=== PATIENT | female | born 1955 | race Caucasian/White ===

== ENCOUNTER 2017-10-28 12:52 | Inpatient (IN) | payer MEDICARE, MEDICAID ==
[~2017-10-28] VITALS: Ht 157.5 cm; Wt 129.0 kg
[2017-10-28 13:23] LABS: BASOPHILS % (AUTO) 0.3 % (0-1); EOSINOPHILS # (AUTO) 0.2 X10'3 (0-0.9); EOSINOPHILS % (AUTO) 1.5 % (0-6); HEMATOCRIT 45.1 % (35.0-45.0); HEMOGLOBIN 14.9 g/dl (12.0-16.0); LYMPHOCYTES # (AUTO) 1.8 X10'3 (1.1-4.8); LYMPHOCYTES % (AUTO) 12.9 % (21-51); MEAN CORPUSCULAR HEMOGLOBIN 26.9 PG (27.0-31.0); MEAN CORPUSCULAR VOLUME 81.8 FL (78-98); MEAN PLATELET VOLUME 9.5 FL (7.4-10.4); MONOCYTES # (AUTO) 0.7 X10'3 (0-0.9); MONOCYTES % (AUTO) 5.2 % (2-12); NEUTROPHILS # (AUTO) 11.4 X10'3 (1.8-7.7); NEUTROPHILS % (AUTO) 80.1 % (42-75); PLATELET COUNT 289 X10'3 (140-440); RED BLOOD COUNT 5.51 X10'6 (4.20-5.60); RED CELL DISTRIBUTION WIDTH 14.6 % (11.5-14.5); WHITE BLOOD COUNT 14.2 X10'3 (4.5-11.0)
[2017-10-28 13:55] LABS: ALANINE AMINOTRANSFERASE 48 U/L (12-78); ALBUMIN 3.8 G/DL (3.4-5.0); ALKALINE PHOSPHATASE 89 IU/L (46-116); ANION GAP 11 (8-16); ASPARTATE AMINO TRANSFERASE 26 U/L (10-37); BILIRUBIN,TOTAL 0.6 MG/DL (0.1-1.0); BLOOD UREA NITROGEN 21 MG/DL (7-18); BUN/CREATININE RATIO 26.3 (6.6-38.0); CALCIUM 9.3 MG/DL (8.5-10.1); CHLORIDE 99 MMOL/L (99-107); GLUCOSE 126 MG/DL (70-104); SODIUM 140 MMOL/L (135-145); TOTAL CARBON DIOXIDE 30.3 MMOL/L (24-32); TOTAL PROTEIN 7.6 G/DL (6.4-8.2); eGFR 73 ML/MIN
[2017-10-28 14:01] LABS: POTASSIUM 2.9 MMOL/L (3.5-5.1)
[2017-10-28 14:14] LABS: INR 0.9 INR; PARTIAL THROMBOPLASTIN TIME 26 SECONDS (22-32); PROTHROMBIN TIME 9.8 SECONDS (9.0-12.0)
[2017-10-28] MEDS ORDERED: potassium Cl oral solution 20 MEQ/15 ML PO ONE (14:50)
[2017-10-28] MEDS ORDERED: acetaminophen 325mg tablet PO PRN (15:10)
[2017-10-28] MEDS ORDERED: MESSAGE TO PHARMACY PO ONE (15:10)
[2017-10-28] MEDS ORDERED: magnesium 2GM in 50ml NS 50 ML IV PRN (15:10)
[2017-10-28] MEDS ORDERED: magnesium hydroxide 30ml (MOM) UD suspension PO PRN (15:10)
[2017-10-28] MEDS ORDERED: HYDROmorphone 1 mg/ml syringe IV PRN (15:10)
[2017-10-28] MEDS ORDERED: glucagon, human recombinant 1mg kit SUBCUT PRN (15:10)
[2017-10-28] MEDS ORDERED: HYDROcodone/acetaminophen 5mg/325mg tablet PO PRN (15:10)
[2017-10-28] MEDS ORDERED: potassium Cl 40MEQ/NS 500ml 500 ML IV PRN ×2 (15:10)
[2017-10-28] MEDS ORDERED: dextrose ORAL solution 15 GM/59 ML bottle PO PRN ×2 (15:10)
[2017-10-28] MEDS ORDERED: mag hydrox/Alum hydrox/simeth 30ml oral suspension PO PRN (15:10)
[2017-10-28] MEDS ORDERED: ondansetron/PF 4mg/2ml inj IV PRN (15:10)
[2017-10-28] MEDS ORDERED: magnesium Cl slow-release 64mg tablet PO PRN (15:10)
[2017-10-28] MEDS ORDERED: insulin Lispro (HumaLOG) vial - multi-dose SQ SCH (15:10)
[2017-10-28] MEDS ORDERED: magnesium 4gm in 100ml NS 100 ML IV PRN (15:10)
[2017-10-28] MEDS ORDERED: HYDROcodone/acetaminophen 10/325mg tab PO PRN (15:10)
[2017-10-28] MEDS ORDERED: morphine 2 MG/ML inj. syringe IV PRN (15:10)
[2017-10-28] MEDS ORDERED: potassium Cl 20 mEq SR tablet PO PRN (15:10)
[2017-10-28] MEDS ORDERED: dextrose 50%-water 50ml dispensing syringe IV PRN ×2 (15:10)
[2017-10-28] MEDS: normal saline 1000ml 1,000 ML IV SCH ×2 (15:51→21:15)
[2017-10-28 15:52] LABS: CLARITY,URINE CLEAR (Clear); GLUCOSE, URINE NEGATIVE (Neg); KETONES,URINE NEGATIVE (Neg); LEUKOCYTE ESTERASE ,URINE NEGATIVE (Neg); NITRITES, URINE NEGATIVE (Neg); OCCULT BLOOD,URINE NEGATIVE (Neg); PROTEIN,URINE NEGATIVE (Neg); UROBILINOGEN,URINE 0.2 E.U/dL (0.2-1.0)
[2017-10-28 15:55] LABS: COLOR,URINE DARK YELLOW (Yellow); UA COLLECTION TYPE OTHER
[2017-10-28 17:20] VITALS: BP 146/78
[2017-10-28 17:54] LABS: HEMOGLOBIN A1C 6.2 % (4.5-6.2)
[2017-10-28] MEDS ORDERED: PYRI50TA10 PO (18:04)
[2017-10-28] MEDS ORDERED: LISI-604 PO (18:04)
[2017-10-28] MEDS ORDERED: CHLO500T3 PO (18:04)
[2017-10-28] MEDS ORDERED: ASCO10007 PO (18:04)
[2017-10-28] MEDS ORDERED: FURO40TA4 PO (18:04)
[2017-10-28] MEDS ORDERED: OREG1500 PO (18:04)
[2017-10-28] MEDS ORDERED: POTA10TA19 PO (18:04)
[2017-10-28] MEDS ORDERED: HYDR25TA4 PO (18:04)
[2017-10-28] MEDS ORDERED: METO-384 PO (18:04)
[2017-10-28] MEDS ORDERED: FURO-150 PO (18:04)
[2017-10-28] MEDS ORDERED: METF500T PO (18:04)
[2017-10-28] MEDS ORDERED: ATOR40TA71 PO (18:04)
[2017-10-28] MEDS ORDERED: HYDR-3564 PO (18:04)
[2017-10-28] MEDS: potassium Cl 20 mEq SR tablet PO PRN ×2 (18:06→22:19)
[2017-10-28 19:00] VITALS: BP 138/72
[2017-10-28] MEDS ORDERED: morphine 5 MG/ML injection IV PRN (20:02)
[2017-10-28] MEDS ORDERED: insulin glargine (Lantus) pen - multi-dose SQ SCH (21:00)
[2017-10-29] VITALS: BP 135/72
[2017-10-29 02:36] LABS: ALBUMIN 3.3 G/DL (3.4-5.0); ANION GAP 11 (8-16); BLOOD UREA NITROGEN 18 MG/DL (7-18); CHLORIDE 102 MMOL/L (99-107); GLUCOSE 120 MG/DL (70-104); MAGNESIUM 2.1 MG/DL (1.5-2.4); POTASSIUM 3.2 MMOL/L (3.5-5.1); SODIUM 141 MMOL/L (135-145); TOTAL CARBON DIOXIDE 28.1 MMOL/L (24-32); eGFR > 90 ML/MIN
[2017-10-29 06:14] LABS: BASOPHILS # (AUTO) 0.1 X10'3 (0-0.2); BASOPHILS % (AUTO) 0.9 % (0-1); EOSINOPHILS # (AUTO) 0.2 X10'3 (0-0.9); HEMATOCRIT 39.9 % (35.0-45.0); HEMOGLOBIN 13.3 g/dl (12.0-16.0); LYMPHOCYTES # (AUTO) 2.5 X10'3 (1.1-4.8); LYMPHOCYTES % (AUTO) 21.8 % (21-51); MEAN CORPUSCULAR HEMOGLOBIN 27.1 PG (27.0-31.0); MEAN CORPUSCULAR HGB CONC 33.4 % (33.0-36.5); MEAN CORPUSCULAR VOLUME 81.2 FL (78-98); MEAN PLATELET VOLUME 9.8 FL (7.4-10.4); MONOCYTES # (AUTO) 0.8 X10'3 (0-0.9); MONOCYTES % (AUTO) 7.3 % (2-12); NEUTROPHILS # (AUTO) 7.9 X10'3 (1.8-7.7); PLATELET COUNT 240 X10'3 (140-440); RED BLOOD COUNT 4.91 X10'6 (4.20-5.60); RED CELL DISTRIBUTION WIDTH 14.8 % (11.5-14.5); WHITE BLOOD COUNT 11.6 X10'3 (4.5-11.0)
[2017-10-29 07:00] VITALS: BP 127/84
[2017-10-29] MEDS ORDERED: K and/or MAG REPLACEMENT MC SCH (08:00)
[2017-10-29 11:00] VITALS: BP 147/86
[2017-10-29] MEDS ORDERED: HYDROCODONE BIT PO PRN (12:25)
[2017-10-29] MEDS ORDERED: ACETAMINOPHEN PO PRN (12:25)
[2017-10-29] MEDS ORDERED: POTA10TA36 PO (12:29)
[2017-10-29] MEDS ORDERED: potassium Cl 20 mEq SR tablet PO STA (12:48)
[2017-10-29] MEDS ORDERED: ascorbic acid 500mg tablet PO SCH (13:00)
[2017-10-29] MEDS ORDERED: ASCORBIC ACID 1 GM PO SCH (13:00)
[2017-10-29] MEDS ORDERED: cyclobenzaprine 10mg tablet PO PRN (16:00)
[2017-10-29] MEDS ORDERED: pyridoxine 50mg tablet PO SCH (20:00)
[2017-10-29] MEDS ORDERED: HYDROchlorothiazide 25mg tablet PO SCH (21:00)
[2017-10-29] MEDS ORDERED: furosemide 40mg tablet PO SCH (21:00)
[2017-10-29] MEDS ORDERED: atorvastatin 20mg tablet PO SCH (21:00)
[2017-10-30] MEDS ORDERED: metFORMIN 500mg tablet PO SCH (08:00)
[2017-10-30] MEDS ORDERED: OREGANO OIL PO SCH (08:00)
[2017-10-30] MEDS ORDERED: furosemide 20MG tablet PO SCH (08:00)
[2017-10-30] MEDS ORDERED: potassium Cl 20 mEq SR tablet PO SCH (08:00)
[2017-10-30] MEDS ORDERED: lisinopril 5mg tablet PO SCH (08:00)
[2017-10-30] MEDS ORDERED: metoprolol succinate 25mg (24-HOUR) SR. Tablet PO SCH (08:00)
== END 2017-10-29 13:55 | disposition home or self-care (01) | DRG 312 ==
LOC: ER 12:53 → ED HOLD 15:10 → EDBEDREQ 16:11 → MED 3N 17:02
PROVIDERS: ADMIT Internal Medicine; ATTEND Internal Medicine
DX: R55 Syncope and collapse (principal); I11.0 Hypertensive heart disease with heart failure; I50.9 Heart failure, unspecified; E11.9 Type 2 diabetes mellitus without complications; F45.8 Other somatoform disorders; E78.5 Hyperlipidemia, unspecified; E87.6 Hypokalemia; J45.909 Unspecified asthma, uncomplicated; R94.31 Abnormal electrocardiogram [ECG] [EKG]; Z90.710 Acquired absence of both cervix and uterus; Z88.5 Allergy status to narcotic agent; Z88.2 Allergy status to sulfonamides; Z88.8 Allergy status to other drugs, medicaments and biological substances; Z91.048 Other nonmedicinal substance allergy status
CPT/HCPCS: 36415; 71045; 80048; 80053; 81003; 82948; 83036; 83735; 84132; 84484; 85025; 85610; 85730; 87070; 93005; 93306; 93880; 99285; J1815; J7030

== ENCOUNTER 2019-07-18 21:05 | Observation (INO) | payer MEDICARE, MEDICAID ==
[~2019-07-18] VITALS: Ht 157.5 cm; Wt 127.3 kg
[~2019-07-18 21:05] MED LIST: ASCO10007 PO; ATOR40TA71 PO; CHLO500T3 PO; FURO-150 PO; FURO40TA4 PO; HYDR-3565 PO; LISI-604 PO; METF500T PO; METO-384 PO; OREG1500 PO; POTA10TA36 PO; PYRI50TA13 PO
[2019-07-18 21:58] LABS: BASOPHILS # (AUTO) 0.1 X10'3 (0-0.2); BASOPHILS % (AUTO) 0.4 % (0-1); EOSINOPHILS # (AUTO) 0.2 X10'3 (0-0.9); EOSINOPHILS % (AUTO) 1.4 % (0-6); HEMATOCRIT 40.7 % (35.0-45.0); HEMOGLOBIN 13.2 g/dl (12.0-16.0); LYMPHOCYTES % (AUTO) 14.7 % (21-51); MEAN CORPUSCULAR HEMOGLOBIN 26.6 PG (27.0-31.0); MEAN CORPUSCULAR HGB CONC 32.4 g/dL (33.0-36.5); MEAN CORPUSCULAR VOLUME 81.9 FL (78-98); MEAN PLATELET VOLUME 9.2 FL (7.4-10.4); MONOCYTES # (AUTO) 0.8 X10'3 (0-0.9); MONOCYTES % (AUTO) 5.7 % (2-12); NEUTROPHILS # (AUTO) 10.4 X10'3 (1.8-7.7); NEUTROPHILS % (AUTO) 77.8 % (42-75); PLATELET COUNT 257 X10'3 (140-440); RED BLOOD COUNT 4.96 X10'6 (4.20-5.60); RED CELL DISTRIBUTION WIDTH 15.4 % (11.5-14.5); WHITE BLOOD COUNT 13.4 X10'3 (4.5-11.0)
[2019-07-18 22:11] LABS: CLARITY,URINE CLEAR (Clear); COLOR,URINE YELLOW (Yellow); GLUCOSE, URINE NEGATIVE (Neg); KETONES,URINE TRACE mg/dl (Neg); LEUKOCYTE ESTERASE ,URINE NEGATIVE (Neg); NITRITES, URINE NEGATIVE (Neg); OCCULT BLOOD,URINE NEGATIVE (Neg); PROTEIN,URINE NEGATIVE (Neg); UROBILINOGEN,URINE 0.2 E.U/dL (0.2-1.0)
[2019-07-18 22:15] LABS: ALANINE AMINOTRANSFERASE 35 U/L (12-78); ALBUMIN 3.2 G/DL (3.4-5.0); ALBUMIN/GLOBULIN RATIO 0.9 (1.1-1.5); ALKALINE PHOSPHATASE 91 IU/L (46-116); ANION GAP 5 (8-16); ASPARTATE AMINO TRANSFERASE 18 U/L (10-37); BILIRUBIN,TOTAL 0.4 MG/DL (0.1-1.0); BLOOD UREA NITROGEN 19 MG/DL (7-18); BUN/CREATININE RATIO 26.8 (6.6-38.0); CHLORIDE 102 MMOL/L (99-107); CREATININE 0.71 MG/DL (0.40-0.90); GLUCOSE 170 MG/DL (70-104); POTASSIUM 3.2 MMOL/L (3.5-5.1); SODIUM 139 MMOL/L (135-145); TOTAL CARBON DIOXIDE 31.6 MMOL/L (24-32); TOTAL PROTEIN 6.9 G/DL (6.4-8.2); eGFR 83 ML/MIN
[2019-07-18 22:18] LABS: PHOSPHORUS 3.6 MG/DL (2.3-4.5); TROPONIN I < 0.04 NG/ML (0.0-0.05)
[2019-07-18 22:18] LABS: UA COLLECTION TYPE CLN CATCH MIDSTREAM
[2019-07-18] MEDS ORDERED: normal saline 1000ML IV soln IVB ONE (22:30)
[2019-07-18] MEDS ORDERED: ondansetron/PF 4mg/2ml inj IV ONE (22:45)
--- NOTE | 2019-07-18 22:45 | NUR ---
MD MADE AWARE THAT PT IS IN RESTROOM VOMITING. MD TO PLACE ORDER FOR ZOFRAN.
[2019-07-18] MEDS ORDERED: CefTRIAXone/D5W-Rocephin 1gm 50 ML IV ONE (22:55)
[2019-07-18] MEDS ORDERED: magnesium 4gm in 100ml NS 100 ML IV PRN (23:20)
[2019-07-18] MEDS ORDERED: ondansetron/PF 4mg/2ml inj IV PRN (23:20)
[2019-07-18] MEDS ORDERED: magnesium Cl slow-release 64mg tablet PO PRN (23:20)
[2019-07-18] MEDS ORDERED: magnesium 2GM in 50ml NS 50 ML IV PRN (23:20)
[2019-07-18] MEDS ORDERED: potassium Cl 20 mEq SR tablet PO PRN ×2 (23:20)
[2019-07-18] MEDS ORDERED: mag hydrox/Alum hydrox/simeth 30ml oral suspension PO PRN (23:20)
[2019-07-18] MEDS ORDERED: acetaminophen 325mg tablet PO PRN ×2 (23:20)
[2019-07-18] MEDS ORDERED: potassium CL 10mEq/100ml bag 100 ML IV PRN ×2 (23:20)
[2019-07-18] MEDS ORDERED: magnesium hydroxide 30ml (MOM) UD suspension PO PRN (23:20)
[2019-07-18] MEDS ORDERED: dextrose ORAL solution 15 GM/59 ML bottle PO PRN ×2 (23:35)
[2019-07-18] MEDS ORDERED: dextrose 50%-water 50ml dispensing syringe IV PRN ×2 (23:35)
[2019-07-18] MEDS ORDERED: MESSAGE TO PHARMACY PO ONE (23:35)
[2019-07-18] MEDS ORDERED: insulin Lispro (HumaLOG) vial - multi-dose SQ SCH (23:35)
[2019-07-18] MEDS ORDERED: glucagon, human recombinant 1mg kit SUBCUT PRN (23:35)
[2019-07-18] MEDS ORDERED: HYDR25TA4 PO (23:39)
[2019-07-18] MEDS ORDERED: METF500T PO (23:39)
[2019-07-18] MEDS ORDERED: POTA10TA19 PO (23:39)
[2019-07-19] LABS: HEMOGLOBIN A1C 6.1 % (4.5-6.2)
[2019-07-19] MEDS: normal saline 1000ml 1,000 ML IV SCH ×3 (00:07→20:15)
--- NOTE | 2019-07-19 00:11 | NUR ---
PT AMBULATING TO BR WITH 1 PERSON SBA, STEADY GAIT. BSC PLACED IN ROOM PT REPORTS NEEDS TO VOID FREQUENTLY.
--- NOTE | 2019-07-19 02:30 | NUR ---
Pt resting comfortably on hospital bed, no complaints. Will continue to monitor.
[2019-07-19 03:08] LABS: BASOPHILS # (AUTO) 0.1 X10'3 (0-0.2); BASOPHILS % (AUTO) 0.6 % (0-1); EOSINOPHILS % (AUTO) 0.3 % (0-6); HEMATOCRIT 38.6 % (35.0-45.0); HEMOGLOBIN 12.5 g/dl (12.0-16.0); LYMPHOCYTES # (AUTO) 2.2 X10'3 (1.1-4.8); LYMPHOCYTES % (AUTO) 18.4 % (21-51); MEAN CORPUSCULAR HEMOGLOBIN 26.6 PG (27.0-31.0); MEAN CORPUSCULAR HGB CONC 32.3 g/dL (33.0-36.5); MEAN CORPUSCULAR VOLUME 82.2 FL (78-98); MEAN PLATELET VOLUME 9.4 FL (7.4-10.4); MONOCYTES # (AUTO) 0.7 X10'3 (0-0.9); MONOCYTES % (AUTO) 5.8 % (2-12); NEUTROPHILS # (AUTO) 9.1 X10'3 (1.8-7.7); NEUTROPHILS % (AUTO) 74.9 % (42-75); PLATELET COUNT 241 X10'3 (140-440); RED CELL DISTRIBUTION WIDTH 15.4 % (11.5-14.5); WHITE BLOOD COUNT 12.1 X10'3 (4.5-11.0)
[2019-07-19 03:19] LABS: ALBUMIN 2.8 G/DL (3.4-5.0); ANION GAP 7 (8-16); BLOOD UREA NITROGEN 14 MG/DL (7-18); BUN/CREATININE RATIO 27.5 (6.6-38.0); CALCIUM 8.4 MG/DL (8.5-10.1); CHLORIDE 106 MMOL/L (99-107); CREATININE 0.51 MG/DL (0.40-0.90); GLUCOSE 117 MG/DL (70-104); MAGNESIUM 1.9 MG/DL (1.5-2.4); POTASSIUM 3.7 MMOL/L (3.5-5.1); SODIUM 142 MMOL/L (135-145); eGFR > 90 ML/MIN
--- NOTE | 2019-07-19 03:48 | NUR ---
Pt with no c/o worsening palpitations. Pt stated "every once in a while I feel something, but nothing like earlier." No changes noted in ECG, will continue to monitor.
[2019-07-19] MEDS ORDERED: CHLORZOXAZONE 250 MG PO SCH (04:00)
--- NOTE | 2019-07-19 05:58 | NUR ---
PAGER ID: [phone] MESSAGE: STEFF SUTHERLAND. ED RM 8 HERBERT, PATIENT REQUESTING PAIN MEDICATION SHE TAKES VICODIN AT HOME. TYLENOL IS NOT WORKING
--- NOTE | 2019-07-19 05:59 | NUR ---
Hospitalist paged to request pain medication stronger than Tylenol. Awaiting call back.
[2019-07-19] MEDS: HYDROcodone/acetaminophen 5mg/325mg tablet PO PRN ×3 (07:30→23:19)
[2019-07-19] MEDS: CefTRIAXone/D5W-Rocephin 1gm 50 ML IV SCH (07:51)
[2019-07-19] MEDS ORDERED: potassium chloride 10mEq ER tablet PO SCH (08:00)
[2019-07-19] MEDS: lisinopril 5mg tablet PO SCH (08:00)
[2019-07-19] MEDS ORDERED: furosemide 20MG tablet PO SCH (08:00)
[2019-07-19] MEDS ORDERED: OREGANO OIL PO SCH (08:00)
[2019-07-19] MEDS ORDERED: ascorbic acid 500mg tablet PO SCH (08:00)
[2019-07-19] MEDS ORDERED: metoprolol succinate 25mg (24-HOUR) SR. Tablet PO SCH (08:00)
[2019-07-19] MEDS: K and/or MAG REPLACEMENT MC SCH (08:02)
[2019-07-19] MEDS: enoxaparin 40mg/0.4ml syringe SQ SCH (08:22)
[2019-07-19] MEDS: pyridoxine 50mg tablet PO SCH ×2 (08:22→20:36)
--- NOTE | 2019-07-19 10:16 | NUR ---
Patient in room ED 8. I have received report from ER Nurse STEFF Quijano and had the opportunity to ask questions and assume patient care.
--- NOTE | 2019-07-19 10:22 | NUR ---
pt to be transferred to [facility], report called to STEFF Miles for continuation of care.
[2019-07-19 10:30] VITALS: BP 154/64
--- NOTE | 2019-07-19 14:46 | NUR ---
Macie Choi Rm [id number] need to d/c home med and rx a muscle relaxer on [facility] formula STEFF Miles ext [phone] *page to [facility]
[2019-07-19 18:00] VITALS: BP 145/52
--- NOTE | 2019-07-19 18:00 | NUR ---
Received report from Ginger ARTIS. assumed care of patient.
[2019-07-19] MEDS: lactobacillus rhamnosus 10,000 MMU CELLS/CAPSULE PO SCH (20:36)
[2019-07-19] MEDS: potassium chloride 10mEq ER tablet PO SCH (20:37)
[2019-07-19] MEDS ORDERED: furosemide 40mg tablet PO SCH (21:00)
[2019-07-19] MEDS ORDERED: insulin glargine (Lantus) pen - multi-dose SQ SCH (21:00)
[2019-07-19] MEDS ORDERED: atorvastatin 20mg tablet PO SCH (21:00)
[2019-07-19 22:00] VITALS: BP 139/56
--- NOTE | 2019-07-20 05:34 | NUR ---
pt states that she doesn't want anymore fluids. She says that fluids aren't helping her. will continue to monitor patient.
[2019-07-20 05:45] LABS: BASOPHILS % (AUTO) 0.5 % (0-1); EOSINOPHILS # (AUTO) 0.2 X10'3 (0-0.9); EOSINOPHILS % (AUTO) 2.7 % (0-6); HEMATOCRIT 37.9 % (35.0-45.0); HEMOGLOBIN 12.4 g/dl (12.0-16.0); LYMPHOCYTES # (AUTO) 2.7 X10'3 (1.1-4.8); LYMPHOCYTES % (AUTO) 30.3 % (21-51); MEAN CORPUSCULAR HGB CONC 32.8 g/dL (33.0-36.5); MEAN CORPUSCULAR VOLUME 82.4 FL (78-98); MEAN PLATELET VOLUME 9.2 FL (7.4-10.4); MONOCYTES # (AUTO) 0.6 X10'3 (0-0.9); MONOCYTES % (AUTO) 7.1 % (2-12); NEUTROPHILS # (AUTO) 5.4 X10'3 (1.8-7.7); NEUTROPHILS % (AUTO) 59.4 % (42-75); PLATELET COUNT 254 X10'3 (140-440); RED CELL DISTRIBUTION WIDTH 15.8 % (11.5-14.5)
[2019-07-20 05:56] LABS: ALBUMIN 3.1 G/DL (3.4-5.0); ANION GAP 7 (8-16); BLOOD UREA NITROGEN 15 MG/DL (7-18); BUN/CREATININE RATIO 26.3 (6.6-38.0); CALCIUM 8.4 MG/DL (8.5-10.1); CHLORIDE 107 MMOL/L (99-107); CHOL/HDL RATIO 3.2 (0.00-4.99); CHOLESTEROL 142 MG/DL (0-200); CREATININE 0.57 MG/DL (0.40-0.90); GLUCOSE 117 MG/DL (70-104); HDL CHOLESTEROL 44 MG/DL (35-60); LDL CHOLESTEROL 79 MG/DL (50-100); MAGNESIUM 2.1 MG/DL (1.5-2.4); SODIUM 144 MMOL/L (135-145); TOTAL CARBON DIOXIDE 29.7 MMOL/L (24-32); TRIGLYCERIDES 174 MG/DL (20-135); eGFR > 90 ML/MIN
[2019-07-20 06:00] VITALS: BP 137/62
--- NOTE | 2019-07-20 06:21 | NUR ---
Gave report to Fawn ARTIS.
--- NOTE | 2019-07-20 07:02 | NUR ---
Patient in room ORTHO 4022. I have received report from [facility] and had the opportunity to ask questions and assume patient care.
[2019-07-20] MEDS ORDERED: metoprolol succinate 25mg (24-HOUR) SR. Tablet PO SCH (08:00)
[2019-07-20] MEDS: CefTRIAXone/D5W-Rocephin 1gm 50 ML IV SCH (08:00)
[2019-07-20] MEDS: K and/or MAG REPLACEMENT MC SCH (08:00)
[2019-07-20] MEDS: lactobacillus rhamnosus 10,000 MMU CELLS/CAPSULE PO SCH (08:19)
[2019-07-20] MEDS: potassium chloride 10mEq ER tablet PO SCH (08:19)
[2019-07-20] MEDS: enoxaparin 40mg/0.4ml syringe SQ SCH (08:20)
[2019-07-20] MEDS: lisinopril 5mg tablet PO SCH (08:20)
[2019-07-20] MEDS: pyridoxine 50mg tablet PO SCH (08:20)
[2019-07-20] MEDS: HYDROcodone/acetaminophen 5mg/325mg tablet PO PRN (08:23)
[2019-07-20] MEDS: normal saline 1000ml 1,000 ML IV SCH (09:35)
[2019-07-20 10:17] VITALS: BP 161/76
--- NOTE | 2019-07-20 10:23 | NUR ---
DM consult: Pt with A1c 6.1, DM education not warranted at this time. Will continue to follow. Addendum: 07/20/19 at [address] Amended: Links added.
[2019-07-20] MEDS ORDERED: METF500T PO (14:12)
[2019-07-20] MEDS ORDERED: ATOR40TA71 PO (14:12)
[2019-07-20] MEDS ORDERED: POTA10TA19 PO (14:12)
--- NOTE | 2019-07-20 15:04 | NUR ---
IV dc'd. Home med changes gone over with pt. Verbalizes understanding. Discharged to home via taxi cab.
== END 2019-07-20 15:00 | disposition home or self-care (01) ==
LOC: ER 21:06 → ED HOLD 07-19 00:05 → INTOOBSV 07-19 00:05 → EDBEDREQ 07-19 09:42 → ORTHO 4S 07-19 10:55
PROVIDERS: ADMIT Hospitalist; ATTEND Family Medicine
DX: R42 Dizziness and giddiness (principal); N95.1 Menopausal and female climacteric states; D72.829 Elevated white blood cell count, unspecified; E87.2 Acidosis; E87.6 Hypokalemia; E78.5 Hyperlipidemia, unspecified; I10 Essential (primary) hypertension; I89.0 Lymphedema, not elsewhere classified; G89.4 Chronic pain syndrome; J45.909 Unspecified asthma, uncomplicated; E11.9 Type 2 diabetes mellitus without complications; Z90.710 Acquired absence of both cervix and uterus; Z79.84 Long term (current) use of oral hypoglycemic drugs; Z79.899 Other long term (current) drug therapy; Z88.5 Allergy status to narcotic agent; Z88.2 Allergy status to sulfonamides; Z88.8 Allergy status to other drugs, medicaments and biological substances
CPT/HCPCS: 36415; 70450; 71045; 80048; 80053; 80061; 81003; 82948; 83036; 83605; 83735; 84100; 84484; 85025; 87040; 93005; 96361; 96365; 96366; 96372; 96375; 99284; G0378; J0696; J2405; J7030; 99285; J1650; J1815

== ENCOUNTER 2020-03-19 05:13 | Observation (INO) | payer MEDICARE, MEDICAID ==
[2020-03-12 11:31] LABS: CLARITY,URINE CLEAR (Clear); COLOR,URINE YELLOW (Yellow); GLUCOSE, URINE NEGATIVE (Neg); KETONES,URINE NEGATIVE (Neg); LEUKOCYTE ESTERASE ,URINE NEGATIVE (Neg); NITRITES, URINE NEGATIVE (Neg); OCCULT BLOOD,URINE NEGATIVE (Neg); PROTEIN,URINE NEGATIVE (Neg); UROBILINOGEN,URINE 0.2 E.U/dL (0.2-1.0)
[2020-03-12 11:32] LABS: UA COLLECTION TYPE CLN CATCH MIDSTREAM
[2020-03-12 11:48] LABS: BASOPHILS % (AUTO) 0.1 % (0-1); EOSINOPHILS # (AUTO) 0.2 X10'3 (0-0.9); EOSINOPHILS % (AUTO) 2.1 % (0-6); LYMPHOCYTES # (AUTO) 2.4 X10'3 (1.1-4.8); LYMPHOCYTES % (AUTO) 22.9 % (21-51); MEAN CORPUSCULAR HEMOGLOBIN 26.3 PG (27.0-31.0); MEAN CORPUSCULAR HGB CONC 32.3 g/dL (33.0-36.5); MEAN CORPUSCULAR VOLUME 81.5 FL (78-98); MEAN PLATELET VOLUME 9.2 FL (7.4-10.4); MONOCYTES # (AUTO) 0.8 X10'3 (0-0.9); MONOCYTES % (AUTO) 7.3 % (2-12); NEUTROPHILS # (AUTO) 7.2 X10'3 (1.8-7.7); NEUTROPHILS % (AUTO) 67.6 % (42-75); PRE OP HEMATOCRIT 44.9 % (35.0-45.0); PRE OP HEMOGLOBIN 14.5 g/dL (12.0-16.0); PRE OP PLATELET COUNT 294 X10'3 (140-440); RED BLOOD COUNT 5.51 X10'6 (4.20-5.60); RED CELL DISTRIBUTION WIDTH 15.5 % (11.5-14.5)
[2020-03-12 12:04] LABS: ALBUMIN 3.6 G/DL (3.4-5.0); ALKALINE PHOSPHATASE 92 IU/L (46-116); BLOOD UREA NITROGEN 16 MG/DL (7-18); BUN/CREATININE RATIO 24.2 (6.6-38.0); CHLORIDE 103 MMOL/L (99-107); CREATININE 0.66 MG/DL (0.40-0.90); PRE OP ALT 44 U/L (30-65); PRE OP ANION GAP 9 (8-16); PRE OP AST 21 U/L (10-37); PRE OP BILIRUB, TOTAL 0.5 MG/DL (0.0-1.0); PRE OP GLUCOSE 107 MG/DL (70-104); PRE OP SODIUM 141 MMOL/L (135-145); TOTAL CARBON DIOXIDE 28.9 MMOL/L (24-32); TOTAL PROTEIN 7.3 G/DL (6.4-8.2); eGFR > 90 ML/MIN
[2020-03-12 12:06] LABS: HEMOGLOBIN A1C 6.7 % (4.5-6.2); PRE OP POTASSIUM 3.3 MMOL/L (3.4-5.1)
[2020-03-19] VITALS (17 sets, daily range): BP systolic 126–178; BP diastolic 45–87
[~2020-03-19] VITALS: Ht 157.5 cm; Wt 136.1 kg
[~2020-03-19 05:13] MED LIST changes: +ALBU18HF2 INH; -ATOR40TA71 PO; -HYDR-3565 PO; +HYDR-3964 PO; +HYDR25TA4 PO; -METF500T PO; -POTA10TA36 PO; +POTA20TA19 PO; +TIOT4MIS2 IH; +ringers solution, lacted 1,000 ML IV SCH
[2020-03-19] MEDS ORDERED: ceFAZolin 2gm in dextrose, iso 50 ML IV ONE (05:30)
[2020-03-19] MEDS ORDERED: ceFAZolin 1GM/D5W- ADD-VANTAGE 50 ML IV ONE (05:30)
[2020-03-19] MEDS ORDERED: famotidine 20mg tablet PO ONE (05:30)
[2020-03-19] MEDS ORDERED: DOCUMENT DATE & TIME OF BETA-BLOCKER PO ONE (05:30)
--- NOTE | 2020-03-19 05:30 | NUR ---
NO SCD'S APPLIED R/T BILAT LE SEVERE LYMPHEDEMA. Addendum: 03/19/20 at 0718 by Lupe Elizondo RN Amended: Links added.
[2020-03-19 06:36] LABS: ISTAT ANION GAP 12 (8-12); ISTAT BUN 12 mg/dL (6-19); ISTAT CL 98 mmol/L (99-107); ISTAT CREATININE 0.5 mg/dL (0.6-1.1); ISTAT GLUCOSE 129 mg/dL (70-104); ISTAT HGB 16.7 g/dl (12.0-16.0); ISTAT Hct 49 %PCV (35-48); ISTAT IONIZED CALCIUM 1.15 mmol/L (1.03-1.32); ISTAT K 3.2 mmol/L (3.5-5.1); ISTAT NA 137 mmol/L (135-145); ISTAT TOTAL CO2 27 mmol/L (24-32); ISTAT eGFR > 90 ML/MIN
[2020-03-19] MEDS ORDERED: ATOR40TA72 PO (06:40)
[2020-03-19] MEDS ORDERED: albuterol 2.5 MG/3 ML nebule NEB ONE (06:50)
[2020-03-19] MEDS ORDERED: ondansetron/PF 4mg/2ml inj ONE (08:50)
[2020-03-19] MEDS ORDERED: dexamethasone sod phosphate 10mg/ml inj ONE (08:50)
[2020-03-19] MEDS ORDERED: sevoflurane 250ml liquid IH ONE (08:50)
[2020-03-19] MEDS ORDERED: ringers solution, lacted 1,000 ML IV SCH (08:51)
[2020-03-19] MEDS ORDERED: ondansetron/PF 4mg/2ml inj IV PRN ×2 (08:55→10:10)
[2020-03-19] MEDS ORDERED: proCHLORperazine 10 MG/2 ml inj IV PRN (08:55)
[2020-03-19] MEDS ORDERED: meperidine/PF 25mg/ml syringe IV PRN (08:55)
[2020-03-19] MEDS ORDERED: acetaminophen 1,000mg/100ml IV 100 ML IV PRN (08:55)
[2020-03-19] MEDS ORDERED: HYDROmorphone inj. 0.5 MG/0.5 ML DISP.SYRIN IV PRN ×2 (08:55)
[2020-03-19] MEDS ORDERED: fentaNYL/PF 50MCG/1 ML 2ML syringe IV PRN ×2 (08:55)
[2020-03-19] MEDS ORDERED: midazolam 2 mg/2 ml injection ONE (09:02)
[2020-03-19] MEDS ORDERED: LIDOcaine 2% (20mg/ml) 5ml vial ONE (09:13)
[2020-03-19] MEDS ORDERED: fentaNYL/PF 50MCG/1 ML 2ML syringe ONE (09:13)
[2020-03-19] MEDS ORDERED: propofol inj 20 ML IV ONE (09:13)
--- NOTE | 2020-03-19 09:43 | NUR ---
Received from OR via SURGICAL BED , accompanied by Anesthesiologist ROLLY and report given by Anesthesiolgist. PATIENT WITH 20G PIV I9N RIGHT UUE RUNNING LR AT 100. DENIES PAIN AT THIS TIME. VSS. UMBILICAL VAC DRESSING IS CDI AND MAINTAINING SUCTION. NO AUDIBLE LEAKS FOR ALARMS AT THIS TIME Addendum: 03/19/20 at 0958 by Woo Lowry RN, RN Amended: Links added.
[2020-03-19] MEDS ORDERED: HYDROcodone/acetaminophen 5mg/325mg tablet PO PRN ×3 (10:10→14:23)
--- NOTE | 2020-03-19 10:43 | NUR ---
ALL CRITERIA FOR DC TO THE FLOOR HAS BEEN ACHIEVED. 2 RAILS UP. BED LOW, CALL LIGHT PRESENT. GAVE REPORT TO RN . PAIN AT A TOLERABLE LEVEL AT THIS TIME. DRESSINGS CDI. CARE TURNED OVER TO STEFF POLO. VSS. SETTLED INTO ROOM 354 A AND 2 BAGS OF BELONGINGS PLACED AT BEDSIDE. RN PRESENT TO ACCEPT CARE. Addendum: 03/19/20 at 1049 by Woo Medina - STEFF RN Amended: Links added.
[2020-03-19] MEDS ORDERED: albuterol 2.5 MG/3 ML nebule NEB PRN (10:45)
[2020-03-19] MEDS ORDERED: ipratropium 0.5 MG/2.5ML nebule IH PRN (10:50)
[2020-03-19] MEDS ORDERED: cyclobenzaprine 10mg tablet PO PRN (10:50)
[2020-03-19] MEDS: HYDROcodone/acetaminophen 5mg/325mg tablet PO PRN (14:17)
--- NOTE | 2020-03-19 17:34 | NUR ---
Patient refused more IVF bag, she states " I don't want any more IV bag, Im already swollen!"
--- NOTE | 2020-03-19 18:25 | NUR ---
Problems reprioritized. Patient report given, questions answered & plan of care reviewed with Nelli ARTIS.
--- NOTE | 2020-03-19 18:45 | NUR ---
Patient in room GRUPO 344. I have received report from Yari ARTIS and had the opportunity to ask questions and assume patient care.
[2020-03-19] MEDS: ascorbic acid 500mg tablet PO SCH ×2 (20:23→21:00)
[2020-03-19] MEDS: pyridoxine 50mg tablet PO SCH (20:47)
[2020-03-19] MEDS ORDERED: furosemide 20MG tablet PO SCH (21:00)
--- NOTE | 2020-03-19 22:57 | NUR ---
unable to assess dorsal pulses or leg pulses due to lymphedema Addendum: 03/19/20 at 2312 by Nelli Cartagena RN Amended: Links added.
--- NOTE | 2020-03-19 23:07 | NUR ---
pt states that hospital nonskid socks do not fit due to swelling in legs and feet Addendum: 03/19/20 at 2312 by Nelli Cartagena RN Amended: Links added.
[2020-03-20] VITALS: BP 142/75
[2020-03-20] MEDS: HYDROcodone/acetaminophen 5mg/325mg tablet PO PRN (01:40)
--- NOTE | 2020-03-20 03:29 | NUR ---
pt was given norco for pain. I asked the pt about the allergy to codine, pt stated allergy was for codine syrup and that norco were fine
[2020-03-20 04:00] VITALS: BP 140/63
--- NOTE | 2020-03-20 06:35 | NUR ---
Problems reprioritized. Patient report given, questions answered & plan of care reviewed with Yari ARTIS.
--- NOTE | 2020-03-20 06:39 | NUR ---
Patient in room GRU[address] 354. I have received report from Nelli ARTIS and had the opportunity to ask questions and assume patient care.
[2020-03-20 07:00] VITALS: BP 127/69
[2020-03-20] MEDS: ascorbic acid 500mg tablet PO SCH ×2 (07:36→13:51)
[2020-03-20] MEDS: pyridoxine 50mg tablet PO SCH (07:38)
[2020-03-20] MEDS ORDERED: HYDROchlorothiazide 25mg tablet PO SCH (08:00)
[2020-03-20] MEDS ORDERED: potassium Cl 20 mEq SR tablet PO SCH (08:00)
[2020-03-20] MEDS ORDERED: lisinopril 5mg tablet PO SCH (08:00)
[2020-03-20] MEDS ORDERED: metoprolol succinate 25mg (24-HOUR) SR. Tablet PO SCH (08:00)
[2020-03-20] MEDS ORDERED: furosemide 40mg tablet PO SCH (08:00)
[2020-03-20] MEDS ORDERED: atorvastatin 20mg tablet PO SCH (08:00)
[2020-03-20] MEDS ORDERED: OREGANO OIL PO SCH (08:00)
--- NOTE | 2020-03-20 08:01 | NUR ---
Patient refused taking her Lasix dose this am, she states "Im supposed to take 20mg in the morning and 40mg at night. The computer won't let me document only 20mg given. Patient also refused taking HCTZ pill.
--- NOTE | 2020-03-20 09:39 | NUR ---
DM consult: Pt with A1c 6.7%, DM education not warranted at this time. Will continue to follow. Addendum: 03/20/20 at [address] Amended: Links added.
[2020-03-20 10:10] VITALS: BP 147/72
[2020-03-20 11:00] VITALS: BP 134/59
[2020-03-20] MEDS ORDERED: dextrose 50%-water 50ml dispensing syringe IV PRN ×2 (12:55)
[2020-03-20] MEDS ORDERED: dextrose ORAL solution 15 GM/59 ML bottle PO PRN ×2 (12:55)
[2020-03-20] MEDS ORDERED: MESSAGE TO PHARMACY PO ONE (12:55)
[2020-03-20] MEDS ORDERED: glucagon, human recombinant 1mg kit SUBCUT PRN (12:55)
[2020-03-20] MEDS ORDERED: insulin Lispro (HumaLOG) vial - multi-dose SQ SCH (12:55)
--- NOTE | 2020-03-20 16:20 | NUR ---
Discharged patient home, discharge instructions given to patient and she verbalized understanding of all instructions given. During discharge process, patient has been complaining that no one explained to her everything like she would end up being on wound vac when she goes home and having home health service. Nubia, Surgery Scheduler went to her room delivered the [facility] home wound vac and that she sent referral for home health nurse to come see her. Nubia also helped arranged patient appointment to [facility]. Peripheral IV catheter removed, tip intact. Instructed patient to ensure she has all her belongings with her before leaving the hospital. Patient was picked up by [employer] to transport her to her home.
[2020-03-20] MEDS ORDERED: insulin glargine (Lantus) pen - multi-dose SQ SCH (21:00)
== END 2020-03-20 16:20 | disposition home health service (06) ==
LOC: PAS 05:13 → SUR 3N 10:18
PROVIDERS: ADMIT Surgery; ATTEND Surgery
DX: Z03.818 Encounter for observation for suspected exposure to other biological agents ruled out (principal); S30.1XXA Contusion of abdominal wall, initial encounter; G89.29 Other chronic pain; M54.5 Low back pain; J45.909 Unspecified asthma, uncomplicated; I50.9 Heart failure, unspecified; I89.0 Lymphedema, not elsewhere classified; Z90.710 Acquired absence of both cervix and uterus; Z87.891 Personal history of nicotine dependence; Z79.891 Long term (current) use of opiate analgesic; Z79.899 Other long term (current) drug therapy; Z88.5 Allergy status to narcotic agent; Z91.048 Other nonmedicinal substance allergy status; Z88.8 Allergy status to other drugs, medicaments and biological substances; X58.XXXA Exposure to other specified factors, initial encounter; Y93.89 Activity, other specified; Y92.89 Other specified places as the place of occurrence of the external cause
CPT/HCPCS: 10140; 36415; 80047; 80053; 81003; 82948; 83036; 85025; 87070; 87075; 87081; 94640; 94760; G0378; J0690; J1100; J2001; J2250; J2405; J2704; J3010; J7120; U0003; A4618; A6550; A7000; J1815

== ENCOUNTER 2020-03-20 20:28 | Emergency (ER) | payer MEDICARE, MEDICAID ==
[~2020-03-20] VITALS: Ht 157.5 cm; Wt 141.0 kg
[~2020-03-20 20:28] MED LIST changes: +ATOR40TA72 PO; -ringers solution, lacted 1,000 ML IV SCH
[2020-03-20 22:51] VITALS: BP 135/77
== END 2020-03-20 22:53 | disposition home or self-care (01) ==
LOC: ER 20:29
DX: L76.34 Postprocedural seroma of skin and subcutaneous tissue following other procedure (principal); J45.909 Unspecified asthma, uncomplicated; E11.9 Type 2 diabetes mellitus without complications; Z90.710 Acquired absence of both cervix and uterus; Z88.2 Allergy status to sulfonamides; Z88.5 Allergy status to narcotic agent; Z88.8 Allergy status to other drugs, medicaments and biological substances; Z79.899 Other long term (current) drug therapy
CPT/HCPCS: 99281; 99283

== ENCOUNTER 2020-03-25 08:45 | Day surgery (SDC) | payer MEDICARE, MEDICAID ==
[2020-03-25] MEDS ORDERED: LIDOcaine 2% 5ml jelly ONE (09:14)
== END 2020-03-25 10:33 | disposition home or self-care (01) ==
LOC: WOUND CARE 08:45
PROVIDERS: ATTEND Nurse Practitioner
DX: T81.89XA Other complications of procedures, not elsewhere classified, initial encounter (principal); L98.492 Non-pressure chronic ulcer of skin of other sites with fat layer exposed; J45.909 Unspecified asthma, uncomplicated; E78.5 Hyperlipidemia, unspecified; I89.0 Lymphedema, not elsewhere classified; I11.0 Hypertensive heart disease with heart failure; I50.9 Heart failure, unspecified; G89.29 Other chronic pain; M54.5 Low back pain; Z79.899 Other long term (current) drug therapy; Z87.891 Personal history of nicotine dependence; Z90.710 Acquired absence of both cervix and uterus; Z79.891 Long term (current) use of opiate analgesic; Y92.239 Unspecified place in hospital as the place of occurrence of the external cause; Y83.8 Other surgical procedures as the cause of abnormal reaction of the patient, or of later complication, without mention of misadventure at the time of the procedure
CPT/HCPCS: 97597; 97598

== ENCOUNTER 2020-03-29 15:15 | Emergency (ER) | payer MEDICARE, MEDICAID ==
[~2020-03-29] VITALS: Ht 157.5 cm; Wt 154.6 kg
--- NOTE | 2020-03-29 17:44 | NUR ---
awaiting for ed .
[2020-03-29] MEDS ORDERED: furosemide 10 MG/1 ML 10ml inj IV ONE (18:30)
[2020-03-29 19:11] LABS: ALANINE AMINOTRANSFERASE 162 U/L (12-78); ALBUMIN 2.6 G/DL (3.4-5.0); ALBUMIN/GLOBULIN RATIO 0.5 (1.1-1.5); ALKALINE PHOSPHATASE 173 IU/L (46-116); ANION GAP 7 (8-16); ASPARTATE AMINO TRANSFERASE 56 U/L (10-37); BILIRUBIN,TOTAL 0.9 MG/DL (0.1-1.0); BLOOD UREA NITROGEN 9 MG/DL (7-18); BUN/CREATININE RATIO 11.8 (6.6-38.0); CHLORIDE 99 MMOL/L (99-107); CREATININE 0.76 MG/DL (0.40-0.90); GLUCOSE 129 MG/DL (70-104); POTASSIUM 3.2 MMOL/L (3.5-5.1); SODIUM 137 MMOL/L (135-145); TOTAL CARBON DIOXIDE 31.1 MMOL/L (24-32); TOTAL PROTEIN 7.7 G/DL (6.4-8.2); eGFR 77 ML/MIN
[2020-03-29 19:17] LABS: BASOPHILS # (AUTO) 0.1 X10'3 (0-0.2); EOSINOPHILS # (AUTO) 0.1 X10'3 (0-0.9); EOSINOPHILS % (AUTO) 0.7 % (0-6); HEMATOCRIT 37.1 % (35.0-45.0); HEMOGLOBIN 12.3 g/dl (12.0-16.0); LYMPHOCYTES # (AUTO) 2.3 X10'3 (1.1-4.8); LYMPHOCYTES % (AUTO) 18.8 % (21-51); MEAN CORPUSCULAR HEMOGLOBIN 26.6 PG (27.0-31.0); MEAN CORPUSCULAR HGB CONC 33.2 g/dL (33.0-36.5); MEAN CORPUSCULAR VOLUME 80.1 FL (78-98); MEAN PLATELET VOLUME 8.3 FL (7.4-10.4); MONOCYTES # (AUTO) 0.9 X10'3 (0-0.9); MONOCYTES % (AUTO) 7.1 % (2-12); NEUTROPHILS # (AUTO) 8.9 X10'3 (1.8-7.7); NEUTROPHILS % (AUTO) 72.4 % (42-75); PLATELET COUNT 429 X10'3 (140-440); RED BLOOD COUNT 4.64 X10'6 (4.20-5.60); RED CELL DISTRIBUTION WIDTH 14.9 % (11.5-14.5); WHITE BLOOD COUNT 12.3 X10'3 (4.5-11.0)
[2020-03-29] MEDS ORDERED: potassium chloride 10mEq ER tablet PO STA (20:16)
[2020-03-29 20:57] VITALS: BP 133/74
== END 2020-03-29 20:54 | disposition home or self-care (01) ==
LOC: ER 15:16
DX: R60.0 Localized edema (principal); M79.89 Other specified soft tissue disorders; J45.909 Unspecified asthma, uncomplicated; E11.9 Type 2 diabetes mellitus without complications; Z90.710 Acquired absence of both cervix and uterus; Z48.00 Encounter for change or removal of nonsurgical wound dressing; Z98.890 Other specified postprocedural states; Z88.2 Allergy status to sulfonamides; Z88.5 Allergy status to narcotic agent; Z88.8 Allergy status to other drugs, medicaments and biological substances; Z79.899 Other long term (current) drug therapy
CPT/HCPCS: 36415; 80053; 85025; 96374; 99283; J1940

== ENCOUNTER 2020-03-31 08:40 | Day surgery (SDC) | payer MEDICARE, MEDICAID ==
[2020-03-31] MEDS ORDERED: LIDOcaine 2% 5ml jelly ONE (09:15)
== END 2020-03-31 10:19 | disposition home or self-care (01) ==
LOC: WOUND CARE 08:40
PROVIDERS: ATTEND Nurse Practitioner Family
DX: T81.89XD Other complications of procedures, not elsewhere classified, subsequent encounter (principal); L98.492 Non-pressure chronic ulcer of skin of other sites with fat layer exposed; J45.909 Unspecified asthma, uncomplicated; E78.5 Hyperlipidemia, unspecified; I89.0 Lymphedema, not elsewhere classified; I11.0 Hypertensive heart disease with heart failure; I50.9 Heart failure, unspecified; G89.29 Other chronic pain; M54.5 Low back pain; Z79.899 Other long term (current) drug therapy; Z87.891 Personal history of nicotine dependence; Z90.710 Acquired absence of both cervix and uterus; Z79.891 Long term (current) use of opiate analgesic; Y83.8 Other surgical procedures as the cause of abnormal reaction of the patient, or of later complication, without mention of misadventure at the time of the procedure
CPT/HCPCS: 97597

== ENCOUNTER 2020-04-08 08:30 | Day surgery (SDC) | payer MEDICARE, MEDICAID ==
[2020-04-08] MEDS ORDERED: LIDOcaine 2% 5ml jelly ONE (09:15)
== END 2020-04-08 10:23 | disposition home or self-care (01) ==
LOC: WOUND CARE 08:30
PROVIDERS: ATTEND Nurse Practitioner
DX: T81.89XD Other complications of procedures, not elsewhere classified, subsequent encounter (principal); L98.492 Non-pressure chronic ulcer of skin of other sites with fat layer exposed; J45.909 Unspecified asthma, uncomplicated; E78.5 Hyperlipidemia, unspecified; I89.0 Lymphedema, not elsewhere classified; I11.0 Hypertensive heart disease with heart failure; I50.9 Heart failure, unspecified; G89.29 Other chronic pain; M54.5 Low back pain; Z79.899 Other long term (current) drug therapy; Z87.891 Personal history of nicotine dependence; Z90.710 Acquired absence of both cervix and uterus; Z79.891 Long term (current) use of opiate analgesic; Z98.890 Other specified postprocedural states; Y83.8 Other surgical procedures as the cause of abnormal reaction of the patient, or of later complication, without mention of misadventure at the time of the procedure
CPT/HCPCS: 97597

== ENCOUNTER 2020-04-15 08:40 | Day surgery (SDC) | payer MEDICARE, MEDICAID ==
[2020-04-15] MEDS ORDERED: LIDOcaine 2% 5ml jelly ONE (08:59)
== END 2020-04-15 10:00 | disposition home or self-care (01) ==
LOC: WOUND CARE 08:40
PROVIDERS: ATTEND Nurse Practitioner
DX: T81.89XD Other complications of procedures, not elsewhere classified, subsequent encounter (principal); L98.492 Non-pressure chronic ulcer of skin of other sites with fat layer exposed; J45.40 Moderate persistent asthma, uncomplicated; E78.49 Other hyperlipidemia; I89.0 Lymphedema, not elsewhere classified; I11.0 Hypertensive heart disease with heart failure; I50.9 Heart failure, unspecified; G89.29 Other chronic pain; M54.5 Low back pain; Z79.899 Other long term (current) drug therapy; Z87.891 Personal history of nicotine dependence; Z90.710 Acquired absence of both cervix and uterus; Z79.891 Long term (current) use of opiate analgesic; Z98.890 Other specified postprocedural states; Y83.8 Other surgical procedures as the cause of abnormal reaction of the patient, or of later complication, without mention of misadventure at the time of the procedure
CPT/HCPCS: 97597

== ENCOUNTER 2020-04-22 08:52 | Day surgery (SDC) | payer MEDICARE, MEDICAID ==
[2020-04-22] MEDS ORDERED: LIDOcaine 2% 5ml jelly ONE (09:09)
== END 2020-04-22 10:13 | disposition home or self-care (01) ==
LOC: WOUND CARE 08:52
PROVIDERS: ATTEND Nurse Practitioner
DX: T81.89XD Other complications of procedures, not elsewhere classified, subsequent encounter (principal); L98.492 Non-pressure chronic ulcer of skin of other sites with fat layer exposed; J45.40 Moderate persistent asthma, uncomplicated; E78.49 Other hyperlipidemia; I89.0 Lymphedema, not elsewhere classified; I11.0 Hypertensive heart disease with heart failure; I50.9 Heart failure, unspecified; G89.29 Other chronic pain; M54.5 Low back pain; Z79.899 Other long term (current) drug therapy; Z87.891 Personal history of nicotine dependence; Z90.710 Acquired absence of both cervix and uterus; Z79.891 Long term (current) use of opiate analgesic; Z98.890 Other specified postprocedural states; Y83.8 Other surgical procedures as the cause of abnormal reaction of the patient, or of later complication, without mention of misadventure at the time of the procedure
CPT/HCPCS: 97597

== ENCOUNTER 2020-05-19 08:50 | Day surgery (SDC) | payer MEDICARE, MEDICAID ==
[~2020-05-19 08:50] MED LIST changes: +ASCO100031 PO; -ASCO10007 PO; +LIDOcaine 2% 5ml jelly ONE
[2020-05-19] MEDS ORDERED: LIDOcaine 2% 5ml jelly ONE (09:03)
[2020-05-19] MEDS ORDERED: nystatin/triamcinolone cream 15gm TP ONE (09:16)
== END 2020-05-19 09:30 | disposition home or self-care (01) ==
LOC: WOUND CARE 08:50
PROVIDERS: ATTEND Nurse Practitioner Family
DX: T81.89XD Other complications of procedures, not elsewhere classified, subsequent encounter (principal); E11.622 Type 2 diabetes mellitus with other skin ulcer; L98.492 Non-pressure chronic ulcer of skin of other sites with fat layer exposed; I11.0 Hypertensive heart disease with heart failure; I50.9 Heart failure, unspecified; I89.0 Lymphedema, not elsewhere classified; J45.40 Moderate persistent asthma, uncomplicated; G89.29 Other chronic pain; M54.5 Low back pain; E78.49 Other hyperlipidemia; Z98.890 Other specified postprocedural states; Z79.899 Other long term (current) drug therapy; Z79.891 Long term (current) use of opiate analgesic; Z90.710 Acquired absence of both cervix and uterus; Z87.891 Personal history of nicotine dependence; Y83.8 Other surgical procedures as the cause of abnormal reaction of the patient, or of later complication, without mention of misadventure at the time of the procedure
CPT/HCPCS: 97597; J7999

== ENCOUNTER 2020-05-26 08:45 | Day surgery (SDC) | payer MEDICARE, MEDICAID ==
[~2020-05-26 08:45] MED LIST changes: -LIDOcaine 2% 5ml jelly ONE
[2020-05-26] MEDS ORDERED: LIDOcaine 2% 5ml jelly ONE (09:05)
== END 2020-05-26 09:37 | disposition home or self-care (01) ==
LOC: WOUND CARE 08:45
PROVIDERS: ATTEND Nurse Practitioner
DX: T81.89XD Other complications of procedures, not elsewhere classified, subsequent encounter (principal); E11.622 Type 2 diabetes mellitus with other skin ulcer; L98.492 Non-pressure chronic ulcer of skin of other sites with fat layer exposed; I11.0 Hypertensive heart disease with heart failure; I50.9 Heart failure, unspecified; I89.0 Lymphedema, not elsewhere classified; J45.40 Moderate persistent asthma, uncomplicated; G89.29 Other chronic pain; M54.5 Low back pain; E78.49 Other hyperlipidemia; Z98.890 Other specified postprocedural states; Z79.899 Other long term (current) drug therapy; Z79.891 Long term (current) use of opiate analgesic; Z90.710 Acquired absence of both cervix and uterus; Z87.891 Personal history of nicotine dependence; Y83.8 Other surgical procedures as the cause of abnormal reaction of the patient, or of later complication, without mention of misadventure at the time of the procedure
CPT/HCPCS: 97597

== ENCOUNTER 2020-06-04 08:24 | Outpatient (CLI) | payer MEDICARE, MEDICAID ==
[2020-06-04] MEDS ORDERED: LIDOcaine 2% 5ml jelly ONE (08:55)
== END 2020-06-04 09:22 | disposition home or self-care (01) ==
LOC: WOUND CARE 08:24 → EDSTATUS 09:00 → WOUND CARE 09:22
PROVIDERS: ATTEND Nurse Practitioner
DX: T81.89XD Other complications of procedures, not elsewhere classified, subsequent encounter (principal); E11.622 Type 2 diabetes mellitus with other skin ulcer; L98.492 Non-pressure chronic ulcer of skin of other sites with fat layer exposed; I11.0 Hypertensive heart disease with heart failure; I50.9 Heart failure, unspecified; I89.0 Lymphedema, not elsewhere classified; J45.40 Moderate persistent asthma, uncomplicated; G89.29 Other chronic pain; M54.5 Low back pain; E78.49 Other hyperlipidemia; Z98.890 Other specified postprocedural states; Z79.899 Other long term (current) drug therapy; Z79.891 Long term (current) use of opiate analgesic; Z90.710 Acquired absence of both cervix and uterus; Z87.891 Personal history of nicotine dependence; Y83.8 Other surgical procedures as the cause of abnormal reaction of the patient, or of later complication, without mention of misadventure at the time of the procedure
CPT/HCPCS: G0463

== ENCOUNTER 2022-05-21 07:48 | Outpatient (CLI) | payer MEDICARE, MEDICAID ==
[~2022-05-21 07:48] MED LIST changes: -LISI-604 PO; +LISI5TAB22 PO; +POTA-207 PO; -POTA20TA19 PO; +PYRI-3 PO; -PYRI50TA13 PO
== END 2022-05-21 23:59 | disposition home or self-care (01) ==
LOC: RT 07:48
PROVIDERS: ATTEND Family Medicine
DX: J45.40 Moderate persistent asthma, uncomplicated (principal); Z87.891 Personal history of nicotine dependence; Z79.899 Other long term (current) drug therapy
CPT/HCPCS: 94060; 94729; 94760